=== PATIENT | female | born 1990 | race American Indian/Alaskan Native ===

== ENCOUNTER 2021-10-08 12:03 | Emergency (ER) | payer OTHER ==
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
[2021-10-08] MEDS ORDERED: KETOROLAC 30 MG/1 ML INJ ONE (14:12)
[2021-10-08] MEDS ORDERED: KETOROLAC 60 MG/2 ML INJ IM ONE (14:17)
[2021-10-08 14:59] VITALS: BP 113/67
== END 2021-10-08 14:59 | disposition home or self-care (01) ==
LOC: ED 12:03
DX: S19.9XXA Unspecified injury of neck, initial encounter (principal); M54.50 Low back pain, unspecified; V87.7XXA Person injured in collision between other specified motor vehicles (traffic), initial encounter; Y93.89 Activity, other specified; Y92.488 Other paved roadways as the place of occurrence of the external cause; Y99.8 Other external cause status
CPT/HCPCS: 72040; 72100; 96372; 99283; J1885